=== PATIENT | male | born 1955 | race Caucasian/White ===

== ENCOUNTER 2019-03-18 11:10 | Day surgery (SDC) | payer BC, MEDICAID ==
[~2019-03-18] VITALS: Ht 165.1 cm; Wt 58.2 kg
[2019-03-18] VITALS (9 sets, daily range): BP systolic 117–160; BP diastolic 59–72; PULSE 42–57; RESP 12–21; Ht 165.1 cm; Wt 58.2 kg
[~2019-03-18 11:10] MED LIST: ACET500T98 PO; AMLO-147 PO; ATOR40TA68 PO; CEFAZOLIN 2 GM/50 ML (PMX) 50 ML IVPB ONE; DULO30CA45 PO; ERGO500013 PO; ESOM40CA; FINA5TAB PO; FINA5TAB4 PO; FLUT1DIS23; FOLI-49 PO; SILO8CAP2 PO; SOD CHLORIDE 0.9% 1,000 ML IV SCH; TAMS-14 PO; TIOT18CA
[2019-03-18] MEDS ORDERED: LIDOCAINE 2% (MDV) 20 ML INJ ONE (13:17)
[2019-03-18] MEDS ORDERED: BUPIVACAINE 0.5% (SDV) 30 ML INJ ONE (13:18)
[2019-03-18] MEDS ORDERED: ALBUTEROL 0.083% (NEB) 2.5 MG/3 ML AMP HHN PRN (13:30)
[2019-03-18] MEDS ORDERED: ONDANSETRON 4 MG INJ IV PRN (13:30)
[2019-03-18] MEDS ORDERED: TRIMETHOBENZAMIDE 100 MG/ML VIAL IM PRN (13:30)
[2019-03-18] MEDS ORDERED: EPHEDrine 25 MG/5 ML SYG IV PRN (13:30)
[2019-03-18] MEDS ORDERED: FENTAnyl 50 MCG/ML VIAL IV PRN ×3 (13:30)
[2019-03-18] MEDS ORDERED: IPRATROPIUM (NEB) 0.5 MG/2.5 ML AMP HHN PRN (13:30)
[2019-03-18] MEDS ORDERED: MEPERIDINE 25 MG INJ IV PRN (13:30)
[2019-03-18] MEDS ORDERED: LABETALOL HCL 20MG INJ IV PRN (13:30)
[2019-03-18] MEDS ORDERED: DIPHENHYDRAMINE 50 MG INJ IV PRN (13:30)
[2019-03-18] MEDS ORDERED: HYDROmorphONE 1 MG/5 ML IV SYRINGE IV PRN ×3 (13:30)
[2019-03-18] MEDS ORDERED: hydrALAzine 20 MG INJ IV PRN (13:30)
[2019-03-18] MEDS ORDERED: MIDAZOLAM 1 MG/ML 2 ML INJ IV PRN (13:30)
[2019-03-18] MEDS ORDERED: OXYCODONE/ACETAMINOPHEN (5/325) TAB PO PRN ×2 (13:30)
[2019-03-18] MEDS ORDERED: PROPOFOL 20 ML ONE (13:44)
[2019-03-18] MEDS ORDERED: LIDOCAINE 100 MG SYRINGE ONE (13:44)
[2019-03-18] MEDS ORDERED: FENTAnyl 50 MCG/ML VIAL ONE (13:44)
[2019-03-18] MEDS ORDERED: HYDROCODONE/APAP (5/325) TAB PO ONE (14:30)
== END 2019-03-18 15:30 | disposition home or self-care (01) ==
LOC: SDS 11:10
PROVIDERS: ATTEND Surgery
DX: L72.0 Epidermal cyst (principal); I10 Essential (primary) hypertension; E78.5 Hyperlipidemia, unspecified; J44.9 Chronic obstructive pulmonary disease, unspecified; N40.0 Benign prostatic hyperplasia without lower urinary tract symptoms; Z87.891 Personal history of nicotine dependence
CPT/HCPCS: 88307; J2001; J3010